=== PATIENT | female | born 1985 ===

== ENCOUNTER 2021-06-22 08:09 | Outpatient (CLI) ==
[2021-06-23 11:56] LABS: SARS-CoV-2 PCR by NAA Not Detected (NotDetected)
== END 2021-06-22 08:10 | disposition home or self-care (01) ==
LOC: CSHLAB 08:09
PROVIDERS: ATTEND Obstetrics & Gynecology
DX: Z01.812 Encounter for preprocedural laboratory examination (principal); Z20.822 Contact with and (suspected) exposure to COVID-19
CPT/HCPCS: U0003; U0005